=== PATIENT | male | born 1995 | race Caucasian/White ===

== ENCOUNTER 2021-07-18 18:18 | Emergency (ER) | payer SELFPAY ==
[2021-07-18] VITALS (8 sets, daily range): BP systolic 135–154; BP diastolic 68–90; PULSE 96–104; RESP 18–38; TEMP 37.5; O2SAT 96–99
--- NOTE | ~2021-07-18 | XR_ITS ---
EXAMINATION: XR hip LT min 2V INDICATION: Left hip pain TECHNIQUE: Two views of the left hip are obtained. COMPARISON: None available FINDINGS: Bone alignment is normal. There is no fracture. The soft tissues are unremarkable. IMPRESSION: 1. No acute osseous abnormality. Reviewed, dictated and finalized at location [facility]. ON[facility]
--- NOTE | ~2021-07-18 | XR_ITS ---
EXAMINATION: XR chest 2V DATE: 07/18/2021 21:15 INDICATION: Weakness, transient alteration of awareness TECHNIQUE: AP and lateral views of the chest are obtained. COMPARISON: None available FINDINGS: There are bilateral airspace opacities, left greater than right. There is no pleural effusi on or pneumothorax. The cardiomediastinal silhouette is normal. The visualized bones and soft tissues are unremarkable. IMPRESSION: 1. Bilateral airspace opacities, likely pneumonia. Reviewed, dictated and finalized at location F. Y ASSISTANT
--- NOTE | 2021-07-18 19:33 | ECG_ITS ---
Measurements Intervals [place] Rate: 105 P: 22 OR: 128 QRS: 44 QRSD: 107 T: 3 QT: 326 QTc: 432 Interpretive Statements SINUS TACHYCARDIA POOR R WAVE PROGRESSION, ANTERIOR LEADS ST ELEVATION CONSISTENT WITH INJURY, PERICARDITIS, OR EARLY REPOLARIZATION ABNORMAL ECG Electronically Signed On 07-19-2021 9:59:26 EXCEPTIONAL STUDENT EDUCATION AIDE by Shashi Lake D.O.
[2021-07-18 21:33] LABS: Basophils Absolute Auto 0.1 K/mm3 (0.0-0.1); Basophils Percent Auto 0.4 % (0.2-1.2); Eosinophils Absolute Auto 0.1 K/mm3 (0-0.3); Eosinophils Percent Auto 0.6 % (0-4.4); Hematocrit 44.5 % (42.0-52.0); Hemoglobin 15.5 g/dL (14.0-18.0); Immature Granulocyte Absolute 0.07 K/mm3 (0.00-0.031); Immature Granulocyte Percent A 0.5 % (0-0.5); Lymphocytes Absolute Auto 1.52 K/mm3 (0.9-3.2); Lymphocytes Percent Auto 9.9 % (18.3-44.2); Mean Corpuscular HGB Conc 34.8 g/dl (32-36); Mean Corpuscular Hemoglobin 29.5 pg (26-34); Mean Corpuscular Volume 84.8 fl (80-100); Mean Platelet Volume 9.8 fl (7.4-10.4); Monocytes Percent Auto 6.4 % (2.6-8.5); Neutrophils Absolute Auto 12.7 K/mm3 (1.3-6.7); Neutrophils Percent Auto 82.2 % (45.5-73.1); Platelet Count Result 312 k/mm3 (150-375); Red Blood Count 5.25 M/mm3 (4.6-6.20); Red Cell Distribution Width 13.2 % (11.5-14.5); White Blood Count 15.4 K/mm3 (4.5-10.0)
[2021-07-18 21:44] LABS: Alanine Aminotransferase 55 U/L (4-50); Albumin Level 4.6 g/dL (3.5-5.1); Alkaline Phosphatase 100 U/L (38-126); Anion Gap 14 mmol/L (8-16); Aspartate Amino Transferase 44 U/L (17-59); Bilirubin,Total 0.8 mg/dL (0.2-1.3); Blood Urea Nitrogen 15 mg/dL (9-20); Calcium 9.2 mg/dL (8.4-10.2); Carbon Dioxide 23 mmol/L (22-30); Chloride 100 mmol/L (98-107); Estimated CRCL calculation 131 ml/min; Estimated Glomerular Filt Rate > 60; Glucose 118 mg/dL (65-110); Potassium 3.6 mmol/L (3.4-5.0); Sodium 137 mmol/L (137-145)
[2021-07-18] MEDS: SODIUM CHLORIDE 0.9% IV 1,000 ML 999 ML IV CONT (21:44)
[2021-07-18] MEDS: Please add drug allergy info to patient profile. 1 EACH XX (22:01)
[2021-07-19 00:11] VITALS: BP 163/80; PULSE 86
[2021-07-19 00:14] VITALS: BP 151/65; PULSE 93
[2021-07-19 00:17] VITALS: BP 142/83; PULSE 102
--- NOTE | 2021-07-19 01:19 | ED.GENADULT ---
HPI - General Adult General Chief complaint: Dizziness Stated complaint: dizzy/weak/fall/fever Time Seen by Provider: 07/18/21 21:08 History of Present Illness HPI narrative: Patient is a 26-year-old male who presents with generalized complaints. Reports early in the afternoon while at work he started having some heaviness with his eyes. He then developed cough for the last day. He is not short of breath. He is vaccinated against Covid. No loss of taste or smell. Reports he was then taking a shower this evening and do the heaviness of his eyes and generalized fatigue he slipped and fell landing on his shoulder and hip on the left side. He reports dizziness when going from sitting to standing. He had no actual loss of consciousness and did not strike his head. Related Data Allergies Allergy/AdvReac Type Severity Reaction Status Date / Time Penicillins Allergy Unknown Verified 07/18/21 21:44 Review of Systems Review of Systems: All systems reviewed & are unremarkable except as noted in HPI and below Constitutional: Constitutional: Denies chills, Reports fatigue, Reports fever(s) and Reports weakness Eyes: Eyes: Denies change in vision and Reports photophobia ENT: Denies nasal congestion and Denies sore throat Cardiovascular: Cardiovascular: Denies chest pain, Denies rapid heart rate and Denies radiating jaw, neck or arm pain Respiratory: Respiratory: Reports cough, Denies dyspnea and Denies wheezing Musculoskeletal: Musculoskeletal: Reports arthralgias (Left hip), Denies joint swelling and Denies muscle cramps Neurologic: Reports headache(s), Denies focal weakness and Denies numbness PMFSH Past Medical History Medical History (Updated 07/19/21 @ 01:23 by William Ragsdale MD) Healthy adult male Surgical History Surgical History (Updated 07/19/21 @ 01:21 by William Ragsdale MD) No history of previous surgery Social History Social History (Updated 07/19/21 @ 01:21 by William Ragsdale MD) Smoking status: Never smoker Exam Narrative: GENERAL: Fatigue-appearing, well-nourished, and in no acute distress. HEAD: Normocephalic, atraumatic. EYES: PERRL and EOMI. CHEST: Clear to auscultation. No respiratory distress. Frequent coughing HEART: Tachycardic regular. Normal peripheral pulses. ABDOMEN: Soft, nontender, nondistended. EXTREMITIES: Normal range of motion. No edema. SKIN: Warm, dry, no rash. NEURO: Alert and oriented x3. PSYCH: Normal mood and affect. Course Course Emergency Course: Patient feels improved with IV fluid. Informed results. Covid swab pending. Will give first dose of azithromycin here and then discharged with rest of the Z-Merlin. We will also provide him with albuterol prescription for home. Vital Signs Vital signs: Vital Signs Temperature 99.5 F 07/18/21 19:29 Pulse Rate 104 H 07/18/21 19:29 Respiratory Rate 18 07/18/21 19:29 Blood Pressure 151/90 H 07/18/21 19:29 Pulse Oximetry 97 07/18/21 19:29 Temperature 99.5 F 07/18/21 19:29 Pulse Rate 102 H 07/19/21 00:17 Respiratory Rate 20 07/18/21 23:32 Blood Pressure 142/83 H 07/19/21 00:17 Pulse Oximetry 96 07/18/21 23:32 Medical Decision Making Vital Signs Vital Signs: Vital Signs Temperature 99.5 F 07/18/21 19:29 Pulse Rate 104 H 07/18/21 19:29 Respiratory Rate 18 07/18/21 19:29 Blood Pressure 151/90 H 07/18/21 19:29 Pulse Oximetry 97 07/18/21 19:29 Temperature 99.5 F 07/18/21 19:29 Pulse Rate 102 H 07/19/21 00:17 Respiratory Rate 20 07/18/21 23:32 Blood Pressure 142/83 H 07/19/21 00:17 Pulse Oximetry 96 07/18/21 23:32 Lab Data Result diagrams: 07/18/21 21:28 07/18/21 21:27 Labs: Lab Results 07/18/21 07/18/21 07/18/21 Range/Units 21:27 21:28 22:41 WBC 15.4 H (4.5-10.0) K/mm3 RBC 5.25 (4.6-6.20) M/mm3 Hgb 15.5 (14.0-18.0) g/dL Hct 44.5 (42.0-52.0) % MCV 84.8 (80-100) fl MCH 29.5
[2021-07-19] MEDS: AZITHROMYCIN 250 MG TABLET 500 MG PO (01:42)
[2021-07-19 01:46] VITALS: BP 135/63; PULSE 103; RESP 18; O2SAT 95
[2021-07-20 14:05] LABS: SARS-CoV-2 RNA PCR Negative
== END 2021-07-19 01:47 | disposition home or self-care (01) ==
PROVIDERS: Emergency Provider Emergency Medicine
DX: J18.9 Pneumonia, unspecified organism (principal); Z20.822 Contact with and (suspected) exposure to COVID-19; R00.0 Tachycardia, unspecified; R94.31 Abnormal electrocardiogram [ECG] [EKG]
CPT/HCPCS: 36415; 71046; 73502; 80053; 85025; 87804; 93005; 96361; 96365; 99284; A9270; C9803; J0131; J7030; U0003; U0005